=== PATIENT | female | born 1940 | race American Indian/Alaskan Native ===

== ENCOUNTER 2017-04-26 11:51 | Emergency (ER) | payer MEDICARE, OTHER ==
[2017-04-26 11:52] VITALS: BMI 30.1
[2017-04-26 12:01] VITALS: BP 156/76; PULSE 51; RESP 20; TEMP 97.5; O2SAT 98
--- NOTE | 2017-04-26 12:41 | C.PDOC ---
History Of Present Illness NEW ONSET L KNEE PAIN X SEV MONTHS. NO TRAUMA. WORSE W WT BEAR, INSIDE OF L KNEE. NO SWELLING, REDNESS OTHER ASSOC SX. SAW PMD FOR SAME, GIVEN [employer] "BUT DOESNT WORK" PS HO CHRONIC R LEG SWELLING "FOR MANY YEARS BUT IT NEVER BOTHERED ME". NO ASSOC PAIN EXAM NAD EXT L KNEE AROM WO DIFF; NO SWELL NONTEND; NO SUBLUX. NO CALF SWELLING, TEND, CORD. NO CREPITUS. R LEG +MIN SWELL NONPITTING AROM WO DIF SKIN NEG NO ERYTHEMA, RASH REMAINDER NEG MDM PT ADVIOSED NEED FOR ORTHO EVAL, POSSIBLE MRI. NSAIDS, PMD /ORTHO REFERRAL Time Seen by Provider: 04/26/17 12:20 Chief Complaint (Nursing): Lower Extremity Problem/Injury History Per: Patient History/Exam Limitations: no limitations Onset/Duration Of Symptoms: Sudden Onset (Several months ago) Past Medical History Reviewed: Historical Data, Nursing Documentation, Vital Signs Vital Signs: Last Vital Signs Temp 97.5 F L 04/26/17 11:56 Pulse 51 L 04/26/17 11:56 Resp 20 04/26/17 11:56 BP 156/76 H 04/26/17 11:56 Pulse Ox 98 04/26/17 12:44 - Medical History PMH: Anemia, Colonic Polyps, HTN, Kidney Stones, Peripheral Edema Comment Only: Chronic Kidney Disease (renal insufficiency) Surgical History: Coronary Stent Family History: States: No Known Family Hx - Social History Hx Tobacco Use: No Hx Alcohol Use: No Hx Substance Use: No - Immunization History Hx Tetanus Toxoid Vaccination: No Hx Influenza Vaccination: Yes (2016) Hx Pneumococcal Vaccination: No Review Of Systems Except As Marked, All Systems Reviewed And Found Negative. Musculoskeletal: Positive for: Other ((+) Left knee pain). Negative for: Leg Pain, Foot Pain Neurological: Negative for: Weakness, Numbness Physical Exam - Physical Exam Appears: Non-toxic, No Acute Distress Skin: Warm, Dry, No Rash Head: Atraumatic, Normacephalic Extremity: Normal ROM (Left knee w/o difficulty), No Tenderness, No Swelling, Other (Left Knee - No sublux. No calf swelling, tenderness, cord. No crepitus. Right Leg - Minimal swelling, Nonpitting AROM w/o difficulty. Skin intact, no erythema.) Neurological/Psych: Oriented x3, Normal Speech, Normal Motor, Normal Sensation ED Course And Treatment O2 Sat by Pulse Oximetry: 98 (RA) Pulse Ox Interpretation: Normal Medical Decision Making Medical Decision Making: NOTE: PT ADVISED NEED FOR ORTHO EVAL, POSSIBLE MRI. NSAIDS, PMD /ORTHO REFERRAL Disposition Counseled Patient/Family Regarding: Diagnosis, Need For Followup, Rx Given - Disposition Referrals: Roberto Carlos Baird III, MD [Staff Provider] - Disposition: HOME/ ROUTINE Disposition Time: 12:42 Condition: IMPROVED Additional Instructions: APPLY PATCH TO AFFECTED AREA. MAX 3 PATCHES AT A TIME. REMOVE PATCH 12 HOURS AFTER INITIAL APPLICATION. ALTERNATE 12 HOURS ON, 12 HOURS OFF. Prescriptions: Lidocaine 5% [Lidoderm] 1 ea TD PRN PRN #10 patch PRN Reason: Pain, Moderate (4-7) Naproxen [Naprosyn] 1 tab PO BID PRN #25 tab PRN Reason: Pain Instructions: Knee Pain (ED) Forms: [employer] (Croatian) - Clinical Impression Clinical Impression: Chronic knee pain - Scribe Statement The provider has reviewed the documentation as recorded by the Julienibkeyur Santillan Provider Attestation: All medical record entries made by the Scribe were at my direction and personally dictated by me. I have reviewed the chart and agree that the record accurately reflects my personal performance of the history, physical exam, medical decision making, and the department course for this patient. I have also personally directed, reviewed, and agree with the discharge instructions and disposition.
[2017-04-26] MEDS ORDERED: Lidocaine 5% Patch TD ONE ×2 (12:54→12:59)
== END 2017-04-26 13:09 | disposition home or self-care (01) ==
LOC: C.ER 11:51
DX: M25.562 Pain in left knee (principal)
CPT/HCPCS: 96372; 99283; J1885